=== PATIENT | female | born 1940 | race Caucasian/White ===

== ENCOUNTER → 2019-03-17 | Day surgery (SDC) | payer MEDICARE, OTHER ==
[~2019-03-17] MED LIST: AMLO10TA4 PO; IV RINGERS,LACTATED 1000ML 1,000 ML IV SCH; LEVO100T PO; LIDOCAINE 2% PF 5 ML VIAL. ONE; LORA10TA68 PO; MAGN400T30 PO; METO50TA4 PO; PROPOFOL 40 ML IV ONE
[2019-03-17 16:58] VITALS: BP 108/72
--- NOTE | 2019-03-19 17:07 | PATHOLOGY ---
[facility] Accession Number: [id number] . 01 Material submitted: . splenic flexure - BIOPSY MASS SPLENIC FLEXURE . 01 Clinical history: . Anemia, weight loss . 02 Diagnosis: Colon biopsies, splenic flexure mass: - ADENOCARCINOMA, [id number], WITH FOCAL MUCINOUS FEATURES. (JPM:[facility] 03/19/2019) [facility] 03/19/2019 0853 Local . 02 Comment: Sections of the splenic flexure mass reveal malignant glands infiltrating a reactive desmoplastic stroma. The malignant glands focally have a gland within gland cribriform arrangement. There are focal mucin lakes within the desmoplastic stroma containing tumor cells. 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 The case is also examined by Dr. Kimble, who concurs with the diagnosis. The results are reported to Dr. Martinez on 03/19/2019 at 2:30 PM. (JP:[facility] 03/19/2019) . 02 Electronically signed: . Zach Ibanez MD, Pathologist NPI- [id number] . 01 Gross description: . The specimen is received in formalin, labeled "Evelyn Mitsdarfer, biopsy mass splenic flexure". Received are nine segments of pale shrestha soft tissue ranging in size from 0.2 to 0.4 cm in maximum dimensions. The specimen is submitted entirely in cassette A1. (CAA; 03/18/2019) QAC/QAC 03/18/2019 1727 Local . 02 Pathologist provided ICD-10: C18.5 . 02 CPT . 890631 Specimen Comment: A courtesy copy of this report has been sent to [phone], [phone] Specimen Comment: [id number] Specimen Comment: Report sent to / DR ALLEN Performed at: 01 [facility] [address], [place], [place] [id number] MD Koffi Champion MD Phone: [phone] Performed at: 02 [facility] [address] [place], [place] [id number] MD Zach Ibanez MD Phone: [phone]
== END | disposition home or self-care (01) ==
LOC: ENDOS 15:31
PROVIDERS: ATTEND Internal Medicine Gastroenterology
DX: D50.9 Iron deficiency anemia, unspecified (principal); C18.5 Malignant neoplasm of splenic flexure; K64.0 First degree hemorrhoids; K63.89 Other specified diseases of intestine; K31.89 Other diseases of stomach and duodenum; I10 Essential (primary) hypertension; E03.9 Hypothyroidism, unspecified; K57.30 Diverticulosis of large intestine without perforation or abscess without bleeding; Z88.8 Allergy status to other drugs, medicaments and biological substances; Z85.42 Personal history of malignant neoplasm of other parts of uterus; Z83.3 Family history of diabetes mellitus; Z82.49 Family history of ischemic heart disease and other diseases of the circulatory system; Z87.891 Personal history of nicotine dependence; Z79.899 Other long term (current) drug therapy; Z90.49 Acquired absence of other specified parts of digestive tract; Z90.710 Acquired absence of both cervix and uterus; Z98.890 Other specified postprocedural states
CPT/HCPCS: 43235; 45380; 45381; 88305; J2001; J2704